=== PATIENT | male | born 1940 | race Caucasian/White ===

== ENCOUNTER → 2021-11-17 | Outpatient (CLI) | payer OTHER ==
[~2021-11-17] MED LIST: AMLO5 PO; ASPI325 PO; ASPI81EC PO; CLOP75 PO; EXTRA STRENGTH500 MG PO; LISI20 PO; LOSA50 PO; METO25 PO; NAPR500; NAPR500 PO; OXYC5 PO; RANI150 PO
== END | disposition home or self-care (01) ==
LOC: LAB SHORT 07:51
DX: D04.61 Carcinoma in situ of skin of right upper limb, including shoulder (principal)
CPT/HCPCS: 88305

== ENCOUNTER → 2021-12-29 | Outpatient (CLI) | payer OTHER | END | disposition home or self-care (01) | LOC: LAB SHORT 07:49 → PLD 07:49 | DX: L82.1 Other seborrheic keratosis (principal) | CPT/HCPCS: 88305 ==

== ENCOUNTER 2022-01-07 06:56 | Day surgery (SDC) | payer OTHER ==
[~2022-01-07] VITALS: Ht 175.3 cm; Wt 82.2 kg
[2022-01-07] MEDS ORDERED: LIVALO2 MG PO (07:14)
--- NOTE | 2022-01-07 08:10 | NUR ---
01/07/22 0810 Laura Dunaway HISTORY,CHART, MEDICATIONS AND ALLERGIES REVIEWED BEFORE START OF PROCEDURE. PATIENT CONFIRMS NPO STATUS AND AGREES WITH SCHEDULED PROCEDURE. 3-LEAD EKG REVIEWED WITH PHYSICIAN PRIOR TO START OF PROCEDURE. MONITOR INTACT WITH CONTINUOUS PULSE OXIMETRY AND INTERMITTENT BP. SUPPLEMENTAL O2 TO BE TITRATED THROUGHOUT PROCEDURE TO MAINTAIN O2 SATURATION ABOVE 90%. PATIENT DETERMINED TO BE ASA APPROPRIATE FOR MODERATE SEDATION PRIOR TO START OF PROCEDURE BY DR. LLANOS.
--- NOTE | 2022-01-07 09:09 | NUR ---
DISCHARGE SUMMARY PT A&OX4, VSS/RA, RUBI PO, LEFT FLOOR VIA WC WITH TO GO HOME WITH ALL PERSONAL POSSESSIONS. IV DC'D.
== END 2022-01-07 22:48 | disposition home or self-care (01) ==
LOC: ORSCMMR 06:56 → ORD 08:00 → ORSCMMR 22:48
PROVIDERS: Internal Medicine Gastroenterology
PROC: 0DBL8ZX Excision of Transverse Colon, Via Natural or Artificial Opening Endoscopic, Diagnostic (ICD-10-PCS; principal; 2022-01-07 08:00)
PROC: 0DBM8ZX Excision of Descending Colon, Via Natural or Artificial Opening Endoscopic, Diagnostic (ICD-10-PCS; principal; 2022-01-07 08:00)
PROC: 0DBK8ZX Excision of Ascending Colon, Via Natural or Artificial Opening Endoscopic, Diagnostic (ICD-10-PCS; principal; 2022-01-07 08:00)
DX: K62.5 Hemorrhage of anus and rectum (principal); Z86.010 Personal history of colon polyps; D12.2 Benign neoplasm of ascending colon; D12.3 Benign neoplasm of transverse colon; D12.4 Benign neoplasm of descending colon; K57.30 Diverticulosis of large intestine without perforation or abscess without bleeding; I10 Essential (primary) hypertension; Z79.899 Other long term (current) drug therapy; Z79.02 Long term (current) use of antithrombotics/antiplatelets; Z79.82 Long term (current) use of aspirin
CPT/HCPCS: 88305; J2250; J3010; J7120

== ENCOUNTER 2022-12-08 07:35 | Day surgery (SDC) | payer OTHER ==
[~2022-12-08] VITALS: Ht 175.3 cm; Wt 82.9 kg
[~2022-12-08 07:35] MED LIST changes: +LIVALO2 MG PO
== END 2022-12-08 09:45 | disposition home or self-care (01) ==
LOC: ORSCSDS 07:35
PROVIDERS: Ophthalmology
PROC: 08DK3ZZ Extraction of Left Lens, Percutaneous Approach (ICD-10-PCS; principal; 2022-12-08 09:00)
DX: H25.12 Age-related nuclear cataract, left eye (principal); I10 Essential (primary) hypertension; I25.10 Atherosclerotic heart disease of native coronary artery without angina pectoris; Z79.899 Other long term (current) drug therapy
CPT/HCPCS: J2001; J2250; J7040; V2632

== ENCOUNTER 2023-04-13 07:05 | Day surgery (SDC) | payer OTHER ==
[~2023-04-13] VITALS: Ht 172.7 cm; Wt 83.6 kg
[2023-04-13] VITALS (15 sets, daily range): BP systolic 121–178; BP diastolic 61–81
--- NOTE | 2023-04-13 07:42 | NUR ---
Ambulatory in [facility] warming gown applied. Surgical site prepped with 2% Chlorhexidine cloth wipe. History, Chart, Medications and Allergies reviewed before start of procedure.Lungs clear T/O to Auscultation. Patient confirms NPO status and agrees with scheduled surgery. Pre-Op teaching done. Pt verbalizes understanding. Patient States Post-Procedure ride home has been arranged.
--- NOTE | 2023-04-13 08:16 | NUR ---
04/13/23 0816 Yoav Conner HISTORY, CHART, MEDICATIONS AND ALLERGIES REVIEWED BEFORE START OF PROCEDURE. PATIENT CONFIRMS NPO STATUS AND AGREES WITH SCHEDULED PROCEDURE. 3-LEAD EKG REVIEWED WITH PHYSICIAN PRIOR TO START OF PROCEDURE. MONITOR INTACT WITH CONTINUOUS PULSE OXIMETRY,CAPNOGRAPHY, 3-LEAD EKG, INTERMITTENT BP. SUPPLEMENTAL O2 TO BE TITRATED THROUGHOUT PROCEDURE TO MAINTAIN O2 SATURATION ABOVE 90%. PATIENT DETERMINED TO BE ASA APPROPRIATE FOR PROPOFOL SEDATION PRIOR TO START OF PROCEDURE BY
--- NOTE | 2023-04-13 08:35 | NUR ---
REPORT RECEIVED FROM CATHY RAY RN. VSS. PT ABLE TO REPOSITION SELF IN BED. PT REQUESTING PO FLUIDS AND TOLERATING THEM WELL. PT DENIES PAIN OR DISCOMFORT AT THIS TIME. AT BEDSIDE.
--- NOTE | 2023-04-13 08:52 | NUR ---
Patient up to Ambulate independently. Gait steady. VSS AND CONSISTENT WITH PT BASELINE. Discharge instructions reviewed with patient. Patient verbalizes understanding. Copy given to patient to take home. PT PRESCRIPTION CALLED INTO [facility] PER PT REQUEST. Patient States Post-Procedure ride home has been arranged. Discharged via wheelchair to private car for ride home. PT BELONGINGS RETURNED TO PT.
== END 2023-04-13 23:05 | disposition home or self-care (01) ==
LOC: ORSCMMR 07:05 → ORD 08:00 → ORSCMMR 08:00
PROVIDERS: Internal Medicine Gastroenterology
PROC: 0DB48ZX Excision of Esophagogastric Junction, Via Natural or Artificial Opening Endoscopic, Diagnostic (ICD-10-PCS; principal; 2023-04-13 08:00)
PROC: 0D758ZZ Dilation of Esophagus, Via Natural or Artificial Opening Endoscopic (ICD-10-PCS; principal; 2023-04-13 08:00)
DX: R13.14 Dysphagia, pharyngoesophageal phase (principal); K21.9 Gastro-esophageal reflux disease without esophagitis; K22.10 Ulcer of esophagus without bleeding; K22.2 Esophageal obstruction; I25.10 Atherosclerotic heart disease of native coronary artery without angina pectoris; E78.00 Pure hypercholesterolemia, unspecified; I10 Essential (primary) hypertension; Z79.02 Long term (current) use of antithrombotics/antiplatelets; Z79.899 Other long term (current) drug therapy
CPT/HCPCS: 88305; A9270; C1726; J2704; J7120